=== PATIENT | male | born 1970 | race Caucasian/White ===

== ENCOUNTER → 2017-04-18 | Outpatient (CLI) | payer OTHER | LOC: KOH-I 15:13 | DX: M54.5 Low back pain (principal); Y99.0 Civilian activity done for income or pay | CPT/HCPCS: 72100 ==

== ENCOUNTER → 2021-11-02 | Outpatient (CLI) | payer OTHER | LOC: EXRD 14:00 | DX: N20.0 Calculus of kidney (principal) | CPT/HCPCS: 76775 ==